=== PATIENT | male | born 1935 | race African-American/Black ===

== ENCOUNTER 2018-12-05 19:08 | Inpatient (IN) | payer OTHER ==
[~2018-12-05] VITALS: Ht 185.4 cm; Wt 47.2 kg
[2018-12-05] MEDS ORDERED: ATRO10DR PO (19:26)
[2018-12-05] MEDS ORDERED: HALO5L PO (19:26)
[2018-12-05] MEDS ORDERED: FUROL PO (19:26)
[2018-12-05] MEDS ORDERED: ONDA4 PO (19:26)
[2018-12-05] MEDS ORDERED: LORA1TAB3 PO (19:26)
[2018-12-05] MEDS ORDERED: BISA5TAB12 PO (19:26)
[2018-12-05] MEDS ORDERED: SODIUM CHLORIDE 0.9% 1,000 ML IV ONE (19:30)
[2018-12-05 21:32] LABS: EOSINOPHILS % (AUTO) 0.1 % (1.0-6.0); HEMATOCRIT 39.6 % (41-53); HEMOGLOBIN 12.4 g/dL (13.5-17.5); LYMPHOCYTES # (AUTO) 0.5 K/uL (1.0-4.8); LYMPHOCYTES % (AUTO) 5.4 % (22.0-44.0); MEAN CORPUSCULAR HEMOGLOBIN 27.4 pg (26.0-34.0); MEAN CORPUSCULAR HGB CONC 31.2 G/dL (31.0-37.0); MEAN CORPUSCULAR VOLUME 88 fL (80-100); MONOCYTES # (AUTO) 0.4 K/uL (0.1-1.0); MONOCYTES % (AUTO) 4.4 % (2.0-9.0); RED BLOOD CELL COUNT(AUTO) 4.51 MIL/uL (4.50-5.90); RED CELL DISTRIBUTION WIDTH 18.1 % (11.5-14.5)
[2018-12-05 21:33] LABS: NEUTROPHILS % (AUTO) 90.1 % (40.0-70.0)
[2018-12-05 21:45] LABS: ALBUMIN 2.9 g/dL (3.4-5.0); BILIRUBIN,TOTAL 0.6 mg/dL (0.1-1.0); CALCIUM, TOTAL 9.9 mg/dL (8.8-10.5); CREATININE 11.7 mg/dL (0.60-1.30); POTASSIUM 3.8 mmol/L (3.5-5.1); TOTAL PROTEIN, SERUM 9.1 g/dL (6.4-8.2)
[2018-12-05 22:31] LABS: PLATELET COUNT (AUTO) 360 K/uL (150-450)
[2018-12-05] MEDS ORDERED: ONDANSETRON HCL 4 MG/2 ML VIAL IVP PRN ×2 (23:15→23:30)
[2018-12-05] MEDS ORDERED: ACETAMINOPHEN 325 MG TABLET PO PRN ×2 (23:15→23:30)
[2018-12-05] MEDS ORDERED: 0.9% SODIUM CHLORIDE 10 ML SYRINGE IVP PRN (23:15)
[2018-12-05] MEDS ORDERED: OxyCODONE HCL/ACETAMINOPHEN 5-325 MG TABLET PO PRN (23:30)
[2018-12-05] MEDS ORDERED: ALBUTEROL SULFATE 2.5 MG/0.5 ML NEB SOLUTION NEB PRN (23:30)
[2018-12-05] MEDS ORDERED: IPRATROPIUM BROMIDE 0.5 MG/2.5 ML NEB SOLUTION NEB PRN (23:30)
[2018-12-05] MEDS ORDERED: ZOLPIDEM TARTRATE 5 MG TABLET PO PRN (23:30)
[2018-12-05] MEDS ORDERED: MORPHINE SULFATE 4 MG/ML SYRINGE IVP PRN (23:30)
[2018-12-05] MEDS ORDERED: BISACODYL 5 MG EC TABLET PO PRN (23:30)
[2018-12-05] MEDS ORDERED: LORazepam 1 MG TABLET PO PRN (23:30)
[2018-12-06 03:55] VITALS: BP 63/42
[2018-12-06 07:29] VITALS: BP 88/52
[2018-12-06] MEDS ORDERED: LORazepam 2 MG/ML VIAL IVP PRN (08:15)
[2018-12-06] MEDS ORDERED: HALOPERIDOL LACTATE 5 MG/ML VIAL IVP SCH (09:00)
[2018-12-06] MEDS ORDERED: FAMOTIDINE 10 MG/ML 2 ML VIAL IVP SCH (09:00)
[2018-12-06] MEDS ORDERED: FUROSEMIDE 20 MG/2 ML VIAL IVP SCH (09:00)
[2018-12-06] MEDS ORDERED: HALOPERIDOL LACTATE 10 MG/5 ML SOLUTION UDCUP PO SCH (09:00)
[2018-12-06] MEDS ORDERED: FAMOTIDINE 20 MG TABLET PO SCH (09:00)
[2018-12-06] MEDS ORDERED: FUROSEMIDE 40 MG/5 ML SOLUTION UDCUP PO SCH (09:00)
[2018-12-06 11:06] VITALS: BP 58/48
[2018-12-06 11:35] VITALS: BP 107/37
== END 2018-12-06 13:15 | disposition expired | DRG 682 ==
LOC: EMS 19:09 → 5S 22:30
PROVIDERS: ADMIT Internal Medicine; ATTEND Internal Medicine
PROC: 5A09357 Assistance with Respiratory Ventilation, Less than 24 Consecutive Hours, Continuous Positive Airway Pressure (ICD-10-PCS; 2018-12-05)
PROC: 5A09357 Assistance with Respiratory Ventilation, Less than 24 Consecutive Hours, Continuous Positive Airway Pressure (ICD-10-PCS; principal; 2018-12-06)
DX: N17.9 Acute kidney failure, unspecified (principal); J96.90 Respiratory failure, unspecified, unspecified whether with hypoxia or hypercapnia; G93.40 Encephalopathy, unspecified; I46.9 Cardiac arrest, cause unspecified; R62.7 Adult failure to thrive; Z51.5 Encounter for palliative care; C14.0 Malignant neoplasm of pharynx, unspecified; I95.9 Hypotension, unspecified; C61 Malignant neoplasm of prostate; Z66 Do not resuscitate; Z79.899 Other long term (current) drug therapy
CPT/HCPCS: 51702; 70450; 93005; 94660; 96360; 99291; G0378; J1630; J3490; J7030